=== PATIENT | female | born 1940 | race Caucasian/White ===

== ENCOUNTER → 2024-04-14 11:20 | Outpatient (CLI) | payer MEDICARE, SELFPAY ==
--- NOTE | 2024-04-14 11:24 | DI.CT.S_ITS ---
PROCEDURE: CT ANGIO CHEST INDICATIONS: Abdominal aortic aneurysm, without rupture, unspec TECHNIQUE: After the administration of intravenous contrast, 2.5 mm thick sections acquired from the lung apices to the posterior lung bases. Maximum intensity projection (MIP) oblique sagittal reformats were then acquired parallel to the aortic arch. For radiation dose reduction, the following was used: automated exposure control. COMPARISON: None. FINDINGS: Image quality: Excellent. Aorta and its attachments: Remote surgical repair of the ascending aorta. The ascending aorta is non aneurysmal, measuring 3.5 cm. The descending thoracic aorta is aneurysmal, measuring 4.2 cm in diameter on image 60/9. Lower Neck: No enlarged lymph nodes. Thyroid: Right substernal goiter with large substernal right lobe nodule measuring 5.1 x 4.2 cm. There is also a right isthmus nodule measuring 3.3 cm. Axillae: No enlarged lymph nodes. Chest Wall: Unremarkable. Bones: Unremarkable. Lungs and Pleura: No pneumothorax or pleural effusions. No consolidation or suspicious nodules. Heart: Heart size is normal. Aortic valve prosthesis. No pericardial effusion. Severe coronary artery calcifications. Thoracic Vessels: Pulmonary arteries demonstrate normal size. Mediastinum and Nyla: No enlarged lymph nodes. Esophagus: No wall thickening. No hiatal hernia. Upper Abdomen: Visualized upper abdomen solid organs and bowel loops appear normal. IMPRESSION: 1. Remote surgical repair of an ascending aortic aneurysm and aortic valve replacement. 2. 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 2. Thyroid goiter with large thyroid nodules, including a 5.1 cm substernal right thyroid nodule. 3. Severe coronary artery calcifications. Comment: Recommend thyroid ultrasound and subsequent probable thyroid FNA. Dictated by: Fred Rich M.D. on 04/14/2024 at 15:46 Approved by: Fred Rich M.D. on 04/14/2024 at 15:53
[2024-04-14 11:48] LABS: Estimated Glomerular Filt Rate > 60 mL/min (>60)
== END ==
PROVIDERS: Radiology Diagnostic Radiology; Referring Provider Internal Medicine Cardiovascular Disease; Visit Provider Internal Medicine Cardiovascular Disease
DX: I71.23 Aneurysm of the descending thoracic aorta, without rupture (principal); E04.2 Nontoxic multinodular goiter; I25.10 Atherosclerotic heart disease of native coronary artery without angina pectoris; Z95.2 Presence of prosthetic heart valve
CPT/HCPCS: 36415; 71275; 82565; Q9967

== ENCOUNTER → 2024-04-25 12:42 | Outpatient (CLI) | payer MEDICARE, SELFPAY ==
--- NOTE | 2024-04-25 12:44 | DI.CT.S_ITS ---
PROCEDURE: CT ANGIO ABDOMEN PELVIS INDICATIONS: Abdominal aortic aneurysm, without rupture TECHNIQUE: After the administration of intravenous contrast, 2.5 mm thick sections acquired from the diaphragm to the symphysis. 10 mm maximum-intensity projection (MIP) reformats were then acquired. For radiation dose reduction, the following was used: automated exposure control. COMPARISON: [facility], US, US AORTA RETROPERITONEAL LIMITED, 01/12/2024, 9:47. FINDINGS: Image Quality: Diagnostic. Delayed phase imaging is limited due to a machine issue resulting in 50 second delay through the pelvis. Abdominal aorta: Aorta is tortuous with marked atherosclerosis. Suprarenal abdominal aorta aneurysm measuring 4.8 x 3 x 4 cm (/53, 7/39). Juxta renal abdominal aorta aneurysm measuring 4.9 x 3.7 x 3.7 cm (61, 7/38). Infrarenal abdominal aortic aneurysm measuring 5.3 x 4.6 x 4.8 cm (79, /35). There is notable noncalcified atherosclerotic plaque/mural thrombus. Common iliac vessels are patent with no significant stenosis. Mild to moderate scattered atherosclerotic plaque. Right proximal SFA is ectatic measuring 1.3 cm (10107) and subsequently occluded. Mesenteric arteries: Patent without hemodynamically significant stenosis. Mild narrowing at the origin of the celiac artery. Scattered atherosclerotic plaque in the branch vessels of the celiac and superior mesenteric vessels. Renal arteries: Patent without hemodynamically significant stenosis. Mild scattered atherosclerotic plaque. OTHER: Lower Chest: No significant findings. Liver: No solid mass. Gallbladder: No radiopaque gallstones or wall thickening. Biliary ducts: No biliary dilation. Pancreas: No ductal dilation. Spleen: Size is within normal limits. Scattered subcentimeter calcified granulomas. Adrenal Glands: No adrenal nodules. Kidneys and Ureters: No hydronephrosis. No solid mass. No complex renal cystic lesion which requires follow up. Stomach and Bowel: Normal colonic caliber, without significant wall thickening. Peritoneum: No abnormal intraperitoneal fluid. No free air. Ventral Wall: No hernia. Abdominal Nodes: No retroperitoneal or mesenteric adenopathy by size criteria. Vessels: Aorta and inferior vena cava are normal in size. PELVIS: Pelvic Organs: Endometrial fluid versus thickening (). Calcified fibroids. Bladder: Unremarkable. Pelvic Nodes: No enlarged lymph nodes. Miscellaneous: No inguinal hernias are seen. Bones: No aggressive osseous abnormality. No acute fractures. Marked multilevel degenerative changes of the spine. IMPRESSION: 1. Abdominal aorta is tortuous with marked atherosclerosis and aneurysmal, the largest diameter in the infrarenal component measuring 5.3 x 4.6 x 4.8 cm. Consider Vascular Surgery consultation. 2. Iliac vessels demonstrate no high-grade stenosis. Right proximal SFA is ectatic measuring 1.3 cm with subsequent occlusion. 3. Endometrial fluid versus thickening. If clinically warranted, a pelvic ultrasound could be performed for further evaluation. Dictated by: Jamaal Briscoe M.D. on 04/26/2024 at 11:41 Approved by: Jamaal Briscoe M.D. on 04/26/2024 at 14:58
== END ==
PROVIDERS: Referring Provider Internal Medicine Cardiovascular Disease; Visit Provider Internal Medicine Cardiovascular Disease
DX: I71.40 Abdominal aortic aneurysm, without rupture, unspecified (principal); I70.0 Atherosclerosis of aorta; I77.1 Stricture of artery
CPT/HCPCS: 74174; Q9967

== ENCOUNTER → 2025-03-26 13:40 | Outpatient (CLI) | payer MEDICARE, SELFPAY ==
--- NOTE | 2025-03-26 13:42 | DI.ECHO.S_ITS ---
[facility] : : [id number] : [place] : : [id number] : : Phone: [phone] Echocardiogram Report + + :Name: SADIE ANDERSON Study Date: 03/26/2025 Height: 63 in : :[facility] ReadingLocation: Weight: 190 lb : : Gender: Female BSA: 1.9 m2 : :: 1940 Age: 84 yrs BP: 155/61 mmHg: :Reason For Study: AORTIC VALVE REPAIR : :Ordering Physician: CANELO, : :SIVAN Performed By: Laura Gorman : :Referring: SIVAN BREEN : + + Interpretation Summary 1) Normal left ventricular size, wall motion, and systolic function (EF 65- 70%). 2) Normal right ventricular size with mildly reduced function. 3) There is a bioprosthetic aortic valve that is well seated and opens well (mean gradient 13mmHg). There is trace perivalvular regurgitation. 4) There is mild to moderate mitral regurgitation. 5) S/P ascending aorta and aortic arch repair. 6) The abdominal aorta is aneurysmal and measures approximately 4.6 cm. There is a mural thrombus measuring approximately 2.0 cm with a false lumen of 1.8 cm. 7) Compared to the Echo done 09/13/2023, no significant change in cardiac structure or morphology. Procedure: A two-dimensional transthoracic echocardiogram with color flow and Doppler was performed. The study quality was technically adequate. Comparison is made with the echocardiogram of 09/13/2023. The patient was in sinus bradycardia with heart rates between 57-66 bpm during the exam. Left Ventricle: The left ventricle is normal in size. There is borderline concentric left ventricular hypertrophy. The ejection fraction is estimated to be 65-70%. Left ventricular systolic function appears normal without focal wall motion abnormalities. Diastolic parameters suggest a pseudonormalization pattern, consistent with probable elevated filling pressures. Right Ventricle: The right ventricle is normal size. Right ventricular systolic function is mildly reduced. Atria: The left atrium is moderately dilated. The right atrium is mildly dilated. There is no Doppler evidence for an interatrial shunt. Mitral Valve: The mitral valve chordae are thickened and/or calcified. The mitral valve leaflets appear mildly thickened, but open well. There is mild to moderate mitral regurgitation. Aortic Valve: There is a prosthetic aortic valve. The prosthetic aortic valve is well-seated. The peak aortic velocity is 2.43 m/sec. The aortic valve mean gradient is 13 mmHg. Tricuspid Valve: The tricuspid valve leaflets are thin and pliable. There is trace tricuspid regurgitation. Pulmonary artery pressures cannot be estimated because of the lack of a measurable TR jet velocity. Pulmonic Valve: The pulmonic valve is not well visualized. There is a trace or physiologic amount of pulmonic regurgitation. Great Vessels: The aortic root is normal size. The dimensions of the ascending aorta are normal. The abdominal aorta is aneurysmal and measures approximately 4.6 cm. There is a mural thrombus measuring approximately 2.0 cm with a false lumen of 1.8 cm. The IVC is of normal diameter and collapses greater than 50% with a sniff. This suggests a low right atrial pressure of 3 mm Hg. Pericardium/ Pleura There is no pericardial effusion. There is no pleural effusion. MMode/2D Measurements & Calculations LVIDd: 4.5 cm LVOT diam: 2.4 cm LVIDs: 2.6 cm Ao root diam: 2.8 cm FS: 43.1 % asc Aorta Diam: 3.3 cm IVSd: 1.00 cm Ao Arch Diam (Prox Trans): 2.9 cm LVPWd: 1.1 cm LV pride. diameter/BSA (cm/m^2): 2.4 LV sys. diameter/BSA (cm/m^2): 1.4 LA A2 area: 22.4 cm2 RA long axis: 5.7 cm LA A4 area: 20.6 cm2 RA area: 18.7 cm2 LA length (vol): 5.3 cm RA vol: 52.6 ml LA vol: 74.2 ml RA : 27.8 ml/m2 LA vol index: 39.2 ml/m2 IVC diam: 1.4 cm RVD1 (basal): 3.0 cm RVD2 (mid): 2.5 cm TAPSE: 1.5 cm Doppler Measurements & Calculations Ao V2 max: 243.6 cm/sec LVOT Max Justin: 95.8 cm/sec Ao V2 mean: 163.8 cm/sec LV V1 max P.7 mmHg Ao max P.7 mmHg LV V1 VTI: 22.3 cm Ao mean P.1 mmHg VIN(I,D): 1.9 cm2 Ao V2 VTI: 52.9 cm VIN(V,D): 1.7 cm2 sev ratio: 0.42 VIN indexed to BSA (cm^2/m^2): 0.98 MV E max justin: 93.6 cm/sec PA V2 max: 84.8 cm/sec MV A max justin: 97.0 cm/sec PA V2 mean: 60.9 cm/sec MV E/A: 0.96 PA mean P.6 mmHg Med Peak E' Justin: 5.8 cm/sec PA pr(Accel): 33.6 mmHg E/E' med: 16.0 Lat Peak E' Jsutin: 7.6 cm/sec E/E' lat: 12.3 E/e' average: 14.1 MV dec time: 0.27 sec SV(LVOT): 98.2 ml Reading Physician:04:28 PM
== END ==
PROVIDERS: Referring Provider Internal Medicine Cardiovascular Disease; Visit Provider Internal Medicine Cardiovascular Disease
DX: I34.0 Nonrheumatic mitral (valve) insufficiency (principal); I71.40 Abdominal aortic aneurysm, without rupture, unspecified; Z95.2 Presence of prosthetic heart valve; Z98.890 Other specified postprocedural states
CPT/HCPCS: 93306